=== PATIENT | female | born 1975 | race Caucasian/White ===

== ENCOUNTER 2017-08-22 10:39 | Emergency (ER) | payer BC, OTHER ==
[~2017-08-22] VITALS: Ht 160 cm; Wt 55.0 kg
[~2017-08-22 10:39] MED LIST: POLY335025 PO
[2017-08-22 10:42] VITALS: Ht 160 cm; Wt 55.0 kg
[2017-08-22] MEDS ORDERED: IBUPROFEN 600 MG TAB PO STA (11:27)
--- NOTE | 2017-08-22 11:40 | EMERGENCY ROOM VISIT NOTE ---
ED Visit Note First contact with patient: 11:20 CHIEF COMPLAINT: Shoulder pain HISTORY OF PRESENT ILLNESS: This 42-year-old female patient presents to the emergency department, ambulatory, complaining of pain in the right shoulder for several months. The patient states this morning when she awoke, she was unable to lift the right arm due to significant pain. She states it hurts with any movement, and there is numbness and tingling in the right hand. There is limitation of motion of the arm because of the pain. The pain is moderate, constant and increases with motion of the hand and arm in an anterior or lateral direction. The patient states the pain is constant and throbbing and 6/ 10. The patient has taken nothing for relief of the pain. No previous significant previous shoulder disease or injury. She is experiencing mild neck and upper back pain, which she has experienced in the past. No chest pain or shortness of breath. No abdominal pain or nausea/vomiting. No cough. REVIEW OF SYSTEMS: A 6 system review of systems was performed with positives and pertinent negatives in the HPI. ALLERGIES: None MEDICATIONS: None PMH: None SOCIAL HISTORY: The patient lives locally with family. 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. She denies drug, alcohol use. She does make to smoking one half pack of cigarettes per day. PHYSICAL EXAM: Vital Signs: Reviewed nurse's notes, vital signs stable. GENERAL : This is a 42-year-old white female, in no acute distress, but appears to be in pain, well-developed, well-nourished. MUSCULOSKELETAL: There is no deformity in the contour of the right shoulder and there are no halina deformities noted. There is no sulcus sign. There is tenderness over the anterior and superior aspect of the shoulder. The patient's range of motion is limited due to pain. Supraspinatus strength 5/5. There is no clavicle tenderness. No tenderness of the humerus, elbow, wrist, or hand. [employer] strength 5/5. Radial pulse 2+. NECK: No tenderness to palpation over the cervical spine. Supple. Trachea midline. HEART: Regular rate and rhythm without murmurs gallops or rubs. LUNGS: Clear to auscultation bilaterally without wheezes, rales or rhonchi. No accessory muscle use. No retractions. NEURO: The patient is alert and oriented to person, place, and time. Normal sensation to light and sharp touch. Capillary refill less than 2 seconds. RADIOLOGY: R SHOULDER MIN 2 VIEWS ROUTINE HISTORY: 42 years-old Female right shoulder pain acute right shoulder pain without reported trauma COMPARISON: None available TECHNIQUE: 3 views of the right shoulder FINDINGS: Minimal AC joint degenerative changes. No significant degenerative changes of the glenohumeral joint. No acute fracture or subluxation. Imaged clavicle appears intact. Imaged lung guerrero appear clear. Suggested bone island of the scapula, 7 mm. IMPRESSION: No acute fracture, dislocation or significant degenerative changes. The above report was generated using voice recognition software. It may contain grammatical, syntax or spelling errors. Electronically signed by: Erick Ely M.D. 08/22/2017 12:04 PM Dictated Date/Time: 08/22/2017 12:02 PM EMERGENCY DEPARTMENT COURSE: I examined the patient. An X-ray of the right shoulder was reviewed by myself and radiologist and shows no acute fracture, dislocation, or significant degenerative change. I offered the patient an arm sling, and recommended rest for the next 2-3 days. She was given a dose of ibuprofen, and did note mild improvement in her symptoms. I suspect a soft tissue injury, tendinitis/overuse injury. The patient will be treated conservatively, and I advised her to follow up outpatient with her PCP or consider orthopedic follow up if needed. I offered the patient an arm sling, and she does accept. Discharge instructions reviewed, and the patient was discharged home in good condition.' I attest that I have personally reviewed the patient's current medication list. Patient was found to have normal blood pressure on screening and does not require follow-up. DIFFERENTIAL DIAGNOSIS: Sprain, strain, tendinitis, fracture, contusion, ACS, cervical radiculopathy, impingement, rotator cuff tear, malignancy, and others DIAGNOSIS: Shoulder pain Current/Historical Medications No Active Prescriptions or Reported Meds Allergies Coded Allergies: No Known Allergies (Unverified , 08/22/17) Vital Signs Date Time Temp Pulse Resp B/P (MAP) Pulse Ox O2 Delivery O2 Flow Rate FiO2 08/22/17 12:56 36.8 67 18 118/66 100 08/22/17 12:53 67 18 118/66 100 Room Air 08/22/17 10:42 36.8 70 18 135/82 100 Room Air Medications Administered Medications (Trade) Dose Ordered Sig/Lorraine Route Start Time Stop Time Status Last Admin Dose Admin Ibuprofen (Motrin Tab) 600 mg NOW STAT PO 08/22/17 11:27 08/22/17 11:28 DC 08/22/17 11:37 600 MG Departure Information Impression Primary Impression: Right shoulder strain Dispostion Home / Self-Care Condition GOOD Prescriptions No Active Prescriptions or Reported Meds Referrals No Doctor, Assigned (PCP) Gerardo Apodaca MD Patient Instructions ED Shoulder Pain RONNA, Noemy [facility] Additional Instructions You have been treated in the Emergency Department for Shoulder Pain. For pain control, you can use the following [id number] medicines (if >12 yo): Ibuprofen(Motrin, Advil) may be used for fever or pain. Use 600mg every six hours as needed. Take with food. Avoid using more than 2400mg in a 24 hour period. Do not use 2400mg per day for more than three consecutive days without physician direction. Prolonged inappropriate use can lead to stomach upset or ulcers. (AND/OR) Acetaminophen(Tylenol) may be used for fever or pain. Use 1000mg every six hours as needed. Avoid using more than 3000mg in a 24 hour period. If this is a recent injury (<24 hrs), ice can be applied to the area of pain for the first 3 days to help decrease pain and inflammation. You have been provided the number for an Orthopaedic Surgeon. You should call this number if no improvement in 1 week to establish a follow-up visit from today's Emergency Department visit. Follow-up with her primary care provider in 2-3 days for recheck and further evaluation and management. Wear the shoulder sling for comfort. Return to the Emergency Department if your current symptoms worsen despite treatment course outlined above, or if you develop any of the following symptoms : intractable pain despite aforementioned treatment course or new onset of numbness or tingling of the arm. Problem Qualifiers Primary Impression: Right shoulder strain Encounter type: initial encounter Qualified Codes: S46.911A - Strain of unspecified muscle, fascia and tendon at shoulder and upper arm level, right arm , initial encounter
--- NOTE | 2017-08-22 12:05 | DIAGNOSTIC IMAGING REPORT ---
R SHOULDER MIN 2 VIEWS ROUTINE HISTORY: 42 years-old Female right shoulder pain acute right shoulder pain without reported trauma COMPARISON: None available TECHNIQUE: 3 views of the right shoulder FINDINGS: Minimal AC joint degenerative changes. No significant degenerative changes of the glenohumeral joint. No acute fracture or subluxation. Imaged clavicle appears intact. Imaged lung guerrero appear clear. Suggested bone island of the scapula, 7 mm. IMPRESSION: No acute fracture, dislocation or significant degenerative changes. The above report was generated using voice recognition software. It may contain grammatical, syntax or spelling errors. Electronically signed by: Erick Ely M.D. 08/22/2017 12:04 PM Dictated Date/Time: 08/22/2017 12:02 PM
[2017-08-22 12:56] VITALS: BP 118/66; PULSE 67; TEMP 36.8; O2SAT 100
== END 2017-08-22 12:57 | disposition home or self-care (01) ==
LOC: C.EDB 10:40 → C.EDD 12:57
DX: S46.911A Strain of unspecified muscle, fascia and tendon at shoulder and upper arm level, right arm, initial encounter (principal); X58.XXXA Exposure to other specified factors, initial encounter; F17.210 Nicotine dependence, cigarettes, uncomplicated